=== PATIENT | female | born 1990 | race Caucasian/White ===

== ENCOUNTER 2018-04-19 10:43 | Emergency (ER) | payer OTHER, SELFPAY ==
[2018-04-19 13:04] LABS: Urine Bacteria >50 /HPF (<20); Urine Culture Reflex Order NOT NEEDED; Urine RBC >50 /HPF (NONE SEEN)
[2018-04-19 13:04] LABS: Urine Blood 3+ (NEG); Urine Glucose NEGATIVE (NEG); Urine Protein 3+ (NEG); Urine pH 6.5 (5.0-7.0)
--- NOTE | 2018-04-19 13:52 | EDPHYS ---
Physician Documentation [facility] Name: Zelda Rose Age: 27 yrs Sex: Female : 1990 Arrival Date: 04/19/2018 Time: 10:48 Bed 28 Private MD: ED Physician Tyrell Merritt HPI: 04/19 13:25 This 27 yrs old Female presents to ER via Ambulatory with complaints of rn Urinary Problem, Cough. 13:25 The patient or guardian reports cough. rn 13:29 Onset: The symptoms/episode began/occurred 2 week(s) ago. The patient has not rn experienced similar symptoms in the past. The patient has not recently seen a physician. Reports kids had flu 2 weeks ago, has been coughing brown sputum, no lung problems, no sob, no chest pain, here today because thinks has UTI, has lower abd and back aching with blood in urine and dysuria. . 13:30 Severity of symptoms: At their worst the symptoms were mild, in the emergency rn department the symptoms are unchanged. Modifying factors: The symptoms are alleviated by nothing, the symptoms are aggravated by nothing. 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 - Social history:: Smoking status: Patient/guardian denies using tobacco. - Ebola Screening: : No symptoms or risks identified at this time. - Family history:: not pertinent. - Hospitalizations: : No recent hospitalization is reported. ROS: 13:30 Constitutional: Negative for fever, chills, and weight loss, Eyes: Negative for injury, rn pain, redness, and discharge, Neck: Negative for injury, pain, and swelling, Cardiovascular: Negative for chest pain, palpitations, and edema, Respiratory: + cough Abdomen/GI: Negative for nausea, vomiting, diarrhea MS/Extremity: Negative for injury and deformity, Skin: Negative for injury, rash, and discoloration, Neuro: Negative for headache, weakness, numbness, tingling, and seizure. Exam: 13:30 Constitutional: This is a well developed, well nourished patient who is awake, alert, rn and in no acute distress. Walked straight up and without difficulty to room. Head/Face: Normocephalic, atraumatic. Cardiovascular: Regular rate and rhythm with a normal S1 and S2. No gallops, murmurs, or rubs. No JVD. No pulse deficits. Respiratory: Lungs have equal breath sounds bilaterally, clear to auscultation. No increased work of breathing, no retractions or nasal flaring. Abdomen/GI: soft, non-tender Skin: Warm, dry with normal turgor. Normal color with no rashes, no lesions, and no evidence of cellulitis. MS/ Extremity: Pulses equal, no cyanosis. Neurovascular intact. Full, normal range of motion. Equal circumference. Neuro: Awake and alert, GCS 15, oriented to person, place, time, and situation. Cranial nerves II-XII grossly intact. Motor strength 5/5 in all extremities. Sensory grossly intact. Normal gait. Vital Signs: 11:32 BP 121 / 78; Pulse 82; Resp 16 S; Temp 97.0(TE); Pulse Ox 98% on R/A; Weight 112.49 kg aa5 (R); Height 5 ft. 3 in. (160.02 cm) (R); Pain 5/10; 13:23 BP 139 / 94; Pulse 76; Resp 15; Temp 98.4; Pulse Ox 99% on R/A; Pain 5/10; ch 14:13 BP 129 / 71; Pulse 70; Resp 16; Temp 98.8; Pulse Ox 99% on R/A; Pain 5/10; ch 11:32 Body Mass Index 43.93 (112.49 kg, 160.02 cm) aa5 MDM: 13:17 Patient medically screened. rn 13:51 Differential Diagnosis: Bronchitis Upper Respiratory Infection Viral Syndrome Other rn UTI. Data reviewed: vital signs, nurses notes, lab test result(s), and as a result, I will discharge patient. Counseling: I had a detailed discussion with the patient and/or guardian regarding: the historical points, exam findings, and any diagnostic results supporting the discharge/admit diagnosis, lab results, the need for outpatient follow up, to return to the emergency department if symptoms worsen or persist or if there are any questions or concerns that arise at home. Special discussion: I discussed with the patient/guardian in detail that at this point there is no indication for admission to the hospital. It is understood, however, that if the symptoms persist or worsen the patient needs to return immediately for re-evaluation. 04/19 11:17 Order name: Urine Culture [facility] 04/19 11:17 Order name: Urine Microscopic Only; Complete Time: 13:17 snw 04/19 11:17 Order name: Urine Test (obtain specimen); Complete Time: 14:13 snw 04/19 11:17 Order name: Urine Dipstick-Ancillary (obtain specimen); Complete Time: 14:13 snw 04/19 12:44 Order name: Urine Dipstick--Ancillary (enter results); Complete Time: 13:17 eb 04/19 12:44 Order name: Urine --Ancillary (enter results); Complete Time: 13:17 eb Administered Medications: No medications were administered Disposition: 04/19/18 13:52 Discharged to Home. Impression: Cough, Urinary tract infection, site not specified. - Condition is Stable. - Discharge Instructions: Urinary Tract Infection, Adult, Cough, Adult. - Prescriptions for Macrobid 100 mg Oral Capsule - take 1 capsule by ORAL route every 12 hours for 10 days; 20 capsule. - Medication Reconciliation Form, Thank You Letter, Antibiotic Education, Prescription Opioid Use form. - Follow up: Private Physician; When: As needed; Reason: Recheck today's complaints, Re-evaluation by your physician. - Problem is new. - Symptoms have improved. Signatures: Dispatcher [employer] EDMS Cynthia Estrada RN RN ch Therrien, Shelly, IT SOLUTIONS ARCHITECT-C IT SOLUTIONS ARCHITECT-Csnw Tyrell Merritt MD MD rn Calderon, Audri, RN RN aa5 Corrections: (The following items were deleted from the chart) 14:15 13:52 04/19/2018 13:52 Discharged to Home. Impression: Cough; Urinary tract infection, site not specified. Condition is Stable. Forms are Medication Reconciliation Form, Thank You Letter, Antibiotic Education, Prescription Opioid Use. Follow up: Private Physician; When: As needed; Reason: Recheck today's complaints, Re-evaluation by your physician. Problem is new. Symptoms have improved. rn
--- NOTE | 2018-04-19 13:52 | ER ---
Nurse's Notes [facility] Name: Zelda Rose Age: 27 yrs Sex: Female : 1990 Arrival Date: 04/19/2018 Time: 10:48 Bed 28 Private MD: Diagnosis: Cough;Urinary tract infection, site not specified Presentation: 04/19 11:25 Presenting complaint: Patient states: "My kids were diagnosed with the flu a few weeks aa5 ago so I am pretty sure I had it too but I've been having chest pains and coughing up brown stuff for about 2 weeks". Pt also reports headache, urinary urgency, and blood in urine. 11:25 Method Of Arrival: Ambulatory aa5 11:25 Transition of care: patient was not received from another setting of care. Onset of aa5 symptoms was April 2018. Risk Assessment: Do you want to hurt yourself or someone else? Patient reports no desire to harm self or others. Initial Sepsis Screen: Does the patient meet any 2 criteria? No. Patient's initial sepsis screen is negative. Does the patient have a suspected source of infection? No. Patient's initial sepsis screen is negative. Care prior to arrival: None. 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 - Social history:: Smoking status: Patient/guardian denies using tobacco. - Ebola Screening: : No symptoms or risks identified at this time. - Family history:: not pertinent. - Hospitalizations: : No recent hospitalization is reported. Screenin:23 Abuse screen: Denies threats or abuse. Denies injuries from another. Nutritional ch screening: No deficits noted. Tuberculosis screening: No symptoms or risk factors identified. Fall Risk None identified. Assessment: 13:23 General: Appears in no apparent distress. comfortable, Behavior is calm, cooperative, ch appropriate for age. Pain: Denies pain. Complains of pain in low back area and suprapubic area Pain currently is 5 out of 10 on a pain scale. Pain began gradually. Neuro: No deficits noted. Respiratory: Airway is patent Respiratory effort is even, unlabored, Breath sounds are clear bilaterally. GI: No signs and/or symptoms were reported involving the gastrointestinal system. GI: Abdomen is round non-distended, Bowel sounds present X 4 quads. Abd is soft and non tender X 4 quads. Reports nausea, vomiting. : No signs and/or symptoms were reported regarding the genitourinary system. Derm: Skin is pink, warm \\T\\ dry. Musculoskeletal: No signs and/or symptoms reported regarding the musculoskeletal system. 14:13 Reassessment: Patient appears in no apparent distress at this time. No changes from previously documented assessment. Patient and/or family updated on plan of care and expected duration. Pain level reassessed. Patient is alert, oriented x 3, equal unlabored respirations, skin warm/dry/pink. Vital Signs: 11:32 BP 121 / 78; Pulse 82; Resp 16 S; Temp 97.0(TE); Pulse Ox 98% on R/A; Weight 112.49 kg aa5 (R); Height 5 ft. 3 in. (160.02 cm) (R); Pain 5/10; 13:23 BP 139 / 94; Pulse 76; Resp 15; Temp 98.4; Pulse Ox 99% on R/A; Pain 5/10; ch 14:13 BP 129 / 71; Pulse 70; Resp 16; Temp 98.8; Pulse Ox 99% on R/A; Pain 5/10; ch 11:32 Body Mass Index 43.93 (112.49 kg, 160.02 cm) aa5 ED Course: 10:48 Patient arrived in ED. sb2 11:25 Arm band placed on. aa5 11:32 Triage completed. aa5 12:24 EKG done, by test and turn up technician. reviewed by Tyrell Merritt MD. sm3 13:17 Tyrell Merritt MD is Attending Physician. rn 13:23 Cynthia Estrada, JOSE RAFAEL is Primary Nurse. ch 13:23 No apparent distress. Resting quietly. ch 13:23 Patient has correct armband on for positive identification. Bed in low position. Call ch light in reach. Side rails up X 1. Pulse ox on. NIBP on. 13:23 No provider procedures requiring assistance completed. Patient did not have IV access ch during this emergency room visit. Administered Medications: No medications were administered Outcome: 13:52 Discharge ordered by . rn 14:13 Discharged to home ambulatory. 14:13 Condition: stable 14:13 Discharge instructions given to patient, Instructed on discharge instructions, follow up and referral plans. no drinking with medication, medication usage, Demonstrated understanding of instructions, follow-up care, medications, Prescriptions given X 1. 14:15 Patient left the ED. Addendum: 04/23/2018 09:10 Addendum: Culture Results: Positive urine culture. No further action required. Bacteria i w sensitive to prescribed antibiotic. Signatures: Cynthia Estrada RN JOSE RAFAEL Brenda Russell RN RN Tyrell Merritt MD MD rn Calderon, JOSE RAFAEL Turpin RN aa5 Wen Maldonado 2 Dorene Olguin 3 Corrections: (The following items were deleted from the chart) 04/19 11:30 11:30 Arm band placed on aa5 aa5
--- NOTE | 2018-04-19 16:03 | EKG ---
Test Date: 2018-04-19 Test Time: 11:36:32 Employment Service Specialist: ARNOLDO MEASUREMENT RESULTS: Intervals: Rate: 66 PA: 170 QRSD: 88 QT: 376 QTc: 394 [place]: P: 54 PA: 170 QRS: 72 T: 43 INTERPRETIVE STATEMENTS: Normal sinus rhythm with sinus arrhythmia Normal ECG No previous ECG available for comparison Electronically Signed On 04-19-18 16:02:51 SPECIAL POLICE OFFICER by Andrew Gibsno
== END 2018-04-19 14:15 | disposition home or self-care (01) ==
LOC: ER 10:43
DX: N39.0 Urinary tract infection, site not specified (principal); R05 Cough
CPT/HCPCS: 81003; 81015; 81025; 87077; 87086; 87088; 87186; 93005; 99283

== ENCOUNTER 2024-05-10 14:16 | Emergency (ER) | payer OTHER, SELFPAY ==
[2024-05-10] MEDS ORDERED: NA CHLORIDE 0.9% 1,000 ML ONE (15:03)
[2024-05-10 15:27] LABS: Absolute Lymphocytes (CBC) 0.9 K/uL (0.7-4.9); Absolute Monocytes 0.5 K/uL (0.1-1.3); Absolute Neutrophil 7.1 K/uL (1.8-8.0); Basophils % 0.5 % (0-1.3); Eosinophils % 0.5 % (0-4.4); Hematocrit 33.2 % (36.0-45.0); Hemoglobin 11.1 g/dL (12.0-15.0); Lymphocytes % 10.1 % (15.3-44.8); MCH 25.4 pg (27.0-35.0); MCHC 33.3 g/dL (32.0-36.0); MCV 76.2 fL (80-100); MPV 7.8 fL (7.6-11.3); Monocytes % 5.7 % (3.3-12.3); Neutrophils % 83.2 % (41.7-73.7); Platelets 323 thou/uL (152-406); RBC Red Blood Cell Count 4.35 M/uL (3.86-4.86)
[2024-05-10 15:40] LABS: SARS-CoV-2 Antigen CONTROL BLUE LINE VIS/BG OK; SARS-CoV-2 Antigen Rapid Res Negative (Negative)
[2024-05-10 15:43] LABS: ALT/SGPT 15 U/L (13-56); AST/SGOT 13 U/L (15-37); Albumin 3.5 g/dL (3.4-5.0); Albumin/Globulin Ratio 0.9 (1.1-1.8); Alkaline Phosphatase 84 U/L (45-117); Anion Gap 7.7 mEq/L (5.0-15.0); BUN Blood Urea Nitrogen 12 mg/dL (7-18); Bicarbonate 27 mEq/L (21-32); Bilirubin Total 0.3 mg/dL (0.2-1.0); Globulin 3.9 g/dL (2.3-3.5); Glomerular Filtration Rate 119 ml/min (=/>90); Glucose Level 103 mg/dL (74-106); Potassium 3.7 mEq/L (3.5-5.1); Protein, Total 7.4 g/dL (6.4-8.2); Sodium Level 136 mEq/L (136-145)
--- NOTE | 2024-05-10 15:56 | RAD REPORT ---
EXAM: Chest Single View HISTORY: CHEST PAIN COMPARISON: 08/02/2022 FINDINGS: LUNGS/PLEURA: The lungs are clear. No pleural effusions or pneumothorax. No pulmonary edema. MEDIASTINUM: The mediastinal silhouette is within normal limits. CARDIAC: Stable size and configuration. UPPER ABDOMEN: No significant abnormality. BONES: No acute abnormality. LINES/TUBES/OTHER: N/A IMPRESSION: No evidence of acute cardiopulmonary disease.
[2024-05-10 16:02] LABS: Bilirubin Direct < 0.2 mg/dL (0-0.2); Bilirubin Indirect, Calculated 0.1 mg/dL (0.2-0.8); Troponin High Sensitivity < 3.0 pg/mL (<58.9)
[2024-05-10] MEDS ORDERED: ACETAMINOPHEN 500 MG TAB ONE (16:15)
[2024-05-10 18:11] LABS: Specific Gravity < 1.005 (1.005-1.030); Sqamous Epithelial <5 /HPF (None Seen); Urine Bacteria <20 /HPF (<20); Urine Bilirubin NEGATIVE (Negative); Urine Blood Trace (Negative); Urine Clarity Turbid (Clear); Urine Color Colorless (Yellow); Urine Culture Reflex Order NOT NEEDED; Urine Glucose NEGATIVE (Negative); Urine Ketones NEGATIVE (Negative); Urine Microscopic Reflex YN ORDER UMIC; Urine Mucus Slight /HPF (None Seen); Urine Nitrite NEGATIVE (Negative); Urine Protein NEGATIVE (Negative); Urine RBC <5 /HPF (None Seen); Urine Urobilinogen Normal (Normal); Urine WBC <5 /HPF (<5)
--- NOTE | 2024-05-10 18:18 | ER ---
Nurse's Notes [facility] Name: Zedla Rose Age: 34 yrs Sex: Female : 1990 Arrival Date: 05/10/2024 Time: 14:16 Bed 10 Private MD: Diagnosis: Viral syndrome Presentation: 05/10 14:27 Chief complaint: Patient states: she has been having fevers, shortness of breath, cough ap3 and body aches since yesterday. patient reports her pain to be a 10/10 on the pain scale. Coronavirus screen: Client presents with at least one sign or symptom that may indicate coronavirus-19. Ebola Screen: No symptoms or risks identified at this time. Initial Sepsis Screen: Does the patient meet any 2 criteria? HR > 90 bpm. No. Patient's initial sepsis screen is negative. Does the patient have a suspected source of infection? No. Patient's initial sepsis screen is negative. Risk Assessment: Do you want to hurt yourself or someone else? Patient reports no desire to harm self or others. Onset of symptoms was May 09, 2024. Transition of care: patient was not received from another setting of care. 14:27 Method Of Arrival: Ambulatory ap3 14:27 Acuity: SERJIO 3 ap3 Triage Assessment: 14:30 General: Appears in no apparent distress. Behavior is calm, cooperative, appropriate ap3 for age, Reports fever for feeling ill for fatigue for. Pain: Complains of pain in back and chest Pain began 1 day ago. Neuro: Level of Consciousness is awake, alert, obeys commands, Oriented to person, place, time, situation, Appropriate for age Speech is normal. Cardiovascular: Patient's skin is warm and dry. Respiratory: Reports shortness of breath cough that is Airway is patent Respiratory effort is even, unlabored, Respiratory pattern is regular, symmetrical. 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 Flu vaccine is not up to date. - Infectious Disease History:: Denies. - Social history:: Smoking status: Patient denies any tobacco usage or history of. Patient uses street drugs, marijuana. - Family history:: not pertinent. Screenin:31 [facility] ED Fall Risk Assessment (Adult) History of falling in the last 3 months, ap3 including since admission No falls in past 3 months (0 pts) Confusion or Disorientation No (0 pts) Intoxicated or Sedated No (0 pts) Impaired Gait No (0 pts) Mobility Assist Device Used No (0 pt) Altered Elimination No (0 pt) Score/Fall Risk Level 0 - 2 = Low Risk Oriented to surroundings, Maintained a safe environment, Educated pt \T\ family on fall prevention, incl call for assistance when getting out of bed, Assessed \T\ reinforced patient's understanding of fall precautions, Hourly rounding (assess needs \T\ fall precautionary measures) done, Used ambulatory aids as needed (educated on \T\ assisted with), Used gait belt as appropriate. Abuse screen: Denies threats or abuse. Nutritional screening: No deficits noted. Tuberculosis screening: No symptoms or risk factors identified. Assessment: 14:37 General: Appears uncomfortable, ill, well developed, well nourished, Behavior is calm, me1 cooperative, appropriate for age. General: Behavior is. General: Reports she has been having fevers, shortness of breath, cough and body aches since yesterday. patient reports her pain to be a 10/10 on the pain scale. Pain: Complains of pain in chest Pain radiates to back Pain currently is 10 out of 10 on a pain scale. Quality of pain is described as aching, Pain began gradually, 1 day ago. Is continuous. Neuro: Level of Consciousness is awake, alert, obeys commands, Oriented to person, place, time, situation, Appropriate for age. Cardiovascular: Patient's skin is warm and dry. Respiratory: Reports shortness of breath cough that is persistent since yesterday pain with cough since yesterday Airway is patent Respiratory effort is even, unlabored, Respiratory pattern is regular, symmetrical. GI: No signs and/or symptoms were reported involving the gastrointestinal system. : No signs and/or symptoms were reported regarding the genitourinary system. EENT: Reports nasal congestion since yesterday. Derm: Skin is intact, is healthy with good turgor, Skin is pink, warm \T\ dry. Musculoskeletal: No signs and/or symptoms reported regarding the musculoskeletal system. Vital Signs: 14:27 BP 134 / 94; Pulse 103; Resp 18; Temp 99.7(O); Pulse Ox 98% on R/A; Weight 127.01 kg; ap3 Height 5 ft. 3 in. ; Pain 10/10; 15:23 BP 132 / 68; Pulse 88; Resp 17; Pulse Ox 99% on R/A; me1 16:19 Temp 101(O); me1 16:30 BP 137 / 83; Pulse 90; Resp 17; Pulse Ox 100% ; me1 16:55 Temp 98.8(O); me1 17:30 BP 137 / 83; Pulse 96; Resp 18; Pulse Ox 98% ; me1 18:00 BP 139 / 71; Pulse 94; Resp 17; Pulse Ox 98% ; me1 18:41 BP 112 / 56; Pulse 99; Resp 18; Temp 98.7; Pulse Ox 99% ; me1 14:27 Body Mass Index 49.60 (127.01 kg, 160.02 cm) ap3 14:27 Pain Scale: Adult ap3 ED Course: 14:17 Patient arrived in ED. im 14:18 Chalino Campbell MD is Attending Physician. rt 14:29 Triage completed. ap3 14:31 Arm band placed on left wrist. ap3 14:36 Bety Barajas, JOSE RAFAEL is Primary Nurse. me1 14:37 Patient has correct armband on for positive identification. Bed in low position. Call me1 light in reach. Side rails up X2. Provided Education on: POC. Verbalized understanding.. Client placed on continuous cardiac and pulse oximetry monitoring. NIBP monitoring applied. Pulse ox on. NIBP on. 14:37 No provider procedures requiring assistance completed. me1 15:06 Initial lab(s) drawn, by me, sent to lab. COVID swab sent to lab. Flu and/or RSV swab me1 sent to lab. Inserted saline lock: 22 gauge in left antecubital area, using aseptic technique. 15:06 Basic Metabolic Panel Sent. me1 15:06 CBC with Diff Sent. me1 15:06 D-Dimer Sent. me1 15:06 LFT's Sent. me1 15:06 Troponin HS Sent. me1 15:21 XRAY Chest (1 view) In Process Unspecified. EDMS 15:23 EKG done, by ED staff, reviewed by Chalino Campbell MD. me1 16:55 Urinalysis w/ reflexes Sent. me1 18:41 IV discontinued, intact, bleeding controlled, No redness/swelling at site. Pressure me1 dressing applied. Administered Medications: 15:10 Drug: NS 0.9% IV 1000 ml IV at 1 bolus Per protocol; to be given as a bolus over 60 me1 minutes Route: IV; Rate: 1 bolus; Site: left antecubital; 16:23 Follow up: Response: No adverse reaction; IV Status: Completed infusion; IV Intake: me1 1000ml 16:23 Drug: Acetaminophen PO 1000 mg PO once Route: PO; me1 16:55 Follow up: Response: No adverse reaction; Temperature is decreased me1 Medication: 14:37 VIS not applicable for this client. me1 Intake: 16:23 IV: 1000ml; Total: 1000ml. me1 Outcome: 18:18 Discharge ordered by MD. rt 18:41 Discharged to home ambulatory, me1 18:41 Condition: stable 18:41 Discharge instructions given to patient, Instructed on discharge instructions, follow up and referral plans. Demonstrated understanding of instructions, follow-up care, 18:41 Patient left the ED. me1 Signatures: Dispatcher [employer] EDOR Yokasta Brooks RN RN ap3 Chalino Campbell MD MD rt María Riggins Michelle RN RN me1 Corrections: (The following items were deleted from the chart) 14:37 14:27 Chief complaint: Patient states: she has been having fevers, shortness of breath, me1 cough and body aches since yesterday. patient reports her pain to be a 10/10 on the pain scale ap3
--- NOTE | 2024-05-10 18:19 | EDPHYS ---
Physician Documentation [facility] Name: Zelda Rose Age: 34 yrs Sex: Female : 1990 Arrival Date: 05/10/2024 Time: 14:16 Bed 10 Private MD: ED Physician Chalino Campbell HPI: 05/10 15:53 This 34 yrs old Female presents to ER via Ambulatory with complaints of Flu Symptoms, rt Back Pain, Chest Pain, Shortness Of Breath. 15:53 Patient presents to the ED with 1 day of cough, congestion, chest pain, shortness of rt breath fever, generalized bodyaches. States that the symptoms have worsened today. Denies other acute complaints at this time, symptoms are moderate in severity, no other aggravating or alleviating factors.. 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 Flu vaccine is not up to date. - Infectious Disease History:: Denies. - Social history:: Smoking status: Patient denies any tobacco usage or history of. Patient uses street drugs, marijuana. - Family history:: not pertinent. ROS: 15:53 Abdomen/GI: Negative for abdominal pain, nausea, vomiting, diarrhea, and constipation, rt MS/Extremity: Negative for injury and deformity, Skin: Negative for injury, rash, and discoloration, 15:53 Constitutional: Positive for body aches, fever, 15:53 Cardiovascular: Positive for chest pain, Negative for edema, 15:53 Respiratory: Positive for cough, shortness of breath, Exam: 15:53 Constitutional: This is a well developed, well nourished patient who is awake, alert, rt and in no acute distress. Head/Face: Normocephalic, atraumatic. Chest/axilla: Normal chest wall appearance and motion. Nontender with no deformity. No lesions are appreciated. Cardiovascular: Regular rate and rhythm with a normal S1 and S2. No gallops, murmurs, or rubs. Normal PMI, no JVD. No pulse deficits. Respiratory: Lungs have equal breath sounds bilaterally, clear to auscultation and percussion. No rales, rhonchi or wheezes noted. No increased work of breathing, no retractions or nasal flaring. Abdomen/GI: Soft, non-tender, with normal bowel sounds. No distension or tympany. No guarding or rebound. No evidence of tenderness throughout. Skin: Warm, dry with normal turgor. Normal color with no rashes, no lesions, and no evidence of cellulitis. MS/ Extremity: Pulses equal, no cyanosis. Neurovascular intact. Full, normal range of motion. Neuro: Awake and alert, GCS 15, oriented to person, place, time, and situation. Cranial nerves II-XII grossly intact. Motor strength 5/5 in all extremities. Sensory grossly intact. Cerebellar exam normal. Normal gait. 15:53 ECG was reviewed by the Attending Physician. Vital Signs: 14:27 BP 134 / 94; Pulse 103; Resp 18; Temp 99.7(O); Pulse Ox 98% on R/A; Weight 127.01 kg; ap3 Height 5 ft. 3 in. ; Pain 10/10; 15:23 BP 132 / 68; Pulse 88; Resp 17; Pulse Ox 99% on R/A; me1 16:19 Temp 101(O); me1 16:30 BP 137 / 83; Pulse 90; Resp 17; Pulse Ox 100% ; me1 16:55 Temp 98.8(O); me1 17:30 BP 137 / 83; Pulse 96; Resp 18; Pulse Ox 98% ; me1 18:00 BP 139 / 71; Pulse 94; Resp 17; Pulse Ox 98% ; me1 18:41 BP 112 / 56; Pulse 99; Resp 18; Temp 98.7; Pulse Ox 99% ; me1 14:27 Body Mass Index 49.60 (127.01 kg, 160.02 cm) ap3 14:27 Pain Scale: Adult ap3 MDM: 14:39 Medical Screening Exam initiated rt 19:50 Differential diagnosis: Viral syndrome, pneumonia, pneumothorax, pulmonary embolus. rt Data reviewed: vital signs, nurses notes, lab test result(s), EKG, radiologic studies. I considered the following discharge prescriptions or medication management in the emergency department Medications were administered in the Emergency Department. See MAR. Independent interpretation of the following test(s) in the Emergency Department X-Ray: My interpretation is No infiltrate seen on interpretation of x-ray images. Counseling: I had a detailed discussion with the patient and/or guardian regarding the historical points, exam findings, and any diagnostic results supporting the discharge/admit diagnosis, lab results, radiology results, the need for outpatient follow up, to return to the emergency department if symptoms worsen or persist or if there are any questions or concerns that arise at home. Response to treatment: the patient's symptoms have markedly improved after treatment. Special discussion: I discussed with the patient/guardian that the patient's current presentation does not indicate dosing of antibiotics. They should follow-up with their primary care provider and return if the symptoms persist or progress. 05/10 14:47 Order name: Basic Metabolic Panel; Complete Time: 16:12 rt 05/10 14:47 Order name: CBC with Diff; Complete Time: 15:52 rt 05/10 14:47 Order name: D-Dimer; Complete Time: 16:17 rt 05/10 14:47 Order name: LFT's; Complete Time: 16:12 rt 05/10 14:47 Order name: Troponin HS; Complete Time: 16:12 rt 05/10 14:47 Order name: Influenza Screen (a \T\ B); Complete Time: 15:52 rt 05/10 14:47 Order name: SARS RAPID; Complete Time: 15:52 rt 05/10 16:47 Order name: Urinalysis w/ reflexes; Complete Time: 18:13 me1 05/10 14:47 Order name: XRAY Chest (1 view); Complete Time: 16:12 rt 05/10 14:47 Order name: EKG; Complete Time: 14:47 rt 05/10 14:47 Order name: Cardiac monitoring; Complete Time: 15:24 rt 05/10 14:47 Order name: EKG - Nurse/Tech; Complete Time: 15:24 rt 05/10 14:47 Order name: IV Saline Lock; Complete Time: 15:06 05/10 14:47 Order name: Labs collected and sent; Complete Time: 15:06 rt 05/10 14:47 Order name: O2 Per Protocol; Complete Time: 15:06 rt 05/10 14:47 Order name: O2 Sat Monitoring; Complete Time: 15:06 rt EC:53 Rate is 81 beats/min. Rhythm is regular, Normal Sinus Rhythm with No ectopy. QRS [place] rt is Normal. NC interval is normal. QRS interval is normal. QT interval is normal. No Q waves. T waves are Normal. No ST changes noted. Interpreted by me. Administered Medications: 15:10 Drug: NS 0.9% IV 1000 ml IV at 1 bolus Per protocol; to be given as a bolus over 60 me1 minutes Route: IV; Rate: 1 bolus; Site: left antecubital; 16:23 Follow up: Response: No adverse reaction; IV Status: Completed infusion; IV Intake: me1 1000ml 16:23 Drug: Acetaminophen PO 1000 mg PO once Route: PO; me1 16:55 Follow up: Response: No adverse reaction; Temperature is decreased me1 Disposition Summary: 05/10/24 18:18 Discharge Ordered Notes: Location: Home rt Problem: new rt Symptoms: have improved rt Condition: Stable rt Diagnosis - Viral syndrome rt Followup: rt - With: Private Physician - When: 2 - 3 days - Reason: Discharge Instructions: - Discharge Summary Sheet rt - Viral Respiratory Infection rt - Viral Illness, Adult rt Forms: - Work release form rt - Medication Reconciliation Form rt - Antibiotic Education rt - Prescription Opioid Use rt - Patient Portal Instructions rt - Leadership Thank You Letter rt Signatures: Dispatcher [employer] EDYokasta Santacruz RN RN ap3 Chalino Campbell MD MD rt Bety Barajas RN RN me1 Corrections: (The following items were deleted from the chart) 14:47 14:47 BASIC METABOLIC PANEL+C.LAB.BRZ ordered. EDMS EDMS 14:47 14:47 CBC+H.LAB.BRZ ordered. EDMS EDMS 14:47 14:47 D-DIMER+COAG.LAB.BRZ ordered. EDMS EDMS 14:47 14:47 HEPATIC FUNCTION+C.LAB.BRZ ordered. EDMS EDMS 14:47 14:47 Troponin High Sensitivity+C.LAB.BRZ ordered. EDMS EDMS 14:47 14:47 Influenza Screen (A \T\ B)+BA.LAB.BRZ ordered. EDMS EDMS 14:47 14:47 SARS-COV-2 Antigen Rapid+I.LAB.BRZ ordered. EDMS EDMS 14:48 14:47 Chest Single View+RAD.RAD.BRZ ordered. EDMS EDMS
[2024-05-10 23:46] VITALS: BP 112/56; TEMP 98.7; O2SAT 99
--- OUTSIDE RECORDS SUMMARY | 2024-05-11 02:27 | XMS REPORT | Continuity of Care Document ---
Author Name Unknown Address [address] [place] [address] [address] [place] [address] [facility] Address [address] [facility] 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 Role Phone MARISABEL REYNOLDS Primary Care Physician MARISABEL Marie Attending Clinician Unavailab MARISABEL Beaulieu Attending Clinician Unavailab Cherie Hampton DNP Attending Clinician [phone] CHERIE STOLL Attending Clinician Unavailable Geno SAND CONDITIONERMarisabel Attending Clinician [phone] Pob, Adc Lab Main Attending Clinician UnavailHAYES Merchant Attending Clinician Unavailable YEN WAITE Attending Clinician Unavailable AYUSH Attending Clinician Unavailable Tj Dior MD Attending Clinician [phone] TJ DIOR Attending Clinician Unavail able TJ DIOR Attending Clinician Unavail able Doctor Unassigned, [place] Attending Clinician U CARMEL Tang Attending Clinician Unavailable Criss Thomas Attending Clinician [phone] CRISS CARBONE Attending Clinician Unavailable AYUSH Admitting Clinician Unavailable Payers Payer Name Policy Type Policy Number Effective Date Expirati on Date Source UMR [id number] 2023 00:00:00 EUNICE MARIANAO [id number] 2020 00:00:00 [facility] UMR [id number] 2022 00:00:00 Problems Condition Name Condition Details Condition Category Status Onset Date Resolution Date Last Treatment Date Treating Clinician Comments Source No known active problems No known active problems Disease [facility] Allergies, Adverse Reactions, Alerts Allergy Name Allergy Type Status Severity Reaction(s) Onset Date Inactive Date Treating Clinician Comments Source NO KNOWN ALLERGIE S Drug Class Active [facility] Social History Social Habit Start Date Stop Date Quantity Comments Source [facility] to SARS-CoV-2 (event) Not sure [facility] Alcoholic beverage intake 2024-02-12 00:00:00 2024-02-12 00:00:00 Current drinker of alcohol (finding) [facility] Alcohol Comment 2024-02-12 00:00:00 2024-02-12 00:00:00 Rarely [facility] Alcohol intake 2021-07-08 00:00:00 2021-07-08 00:00:00 Current drinker of alcohol (finding) [facility] History of Social function 2020-07-06 00:00:00 2020-07-06 00:00:00 [facility] Tobacco use and exposure 2020-07-06 00:00:00 2020-07-06 00:00:00 Smokeless tobacco non-user [facility] Sex assigned at 1990 00:00:00 1990 00:00:00 [facility] Smoking Status Start Date Stop Date Source Never smoked tobacco [facility] Medications Ordered Medication Name Filled Medication Name Start Date Stop Date Current Medication? Ordering Clinician Indication Dosage Frequency Signature (SIG) Comments Components Source terbinafine HCL 250 mg tablet 2023-04 00:00: 00 04-16 05:59 :00 Yes [id number] 250mg Take 1 tablet by mouth in the morning for 60 days. [facility] phentermine 37.5 mg tablet 9-19 00:00: 00 Yes TAKE 1 TABLET BY MOUTH EVERY DAY BEFORE BREAKFAST [facility] No known medications 4-14 13:45: 59 No [facility] Vital Signs Vital Name Observation Time Observation Value Comments S ource Heart rate 2024-02-12 16:29:00 79 /min [facility] Oxygen saturation in Arterial blood by Pulse oximetry 2024-02-12 16:29:00 98 /min [facility] Systolic blood pressure 2024-02-12 16:28:00 130 mm[Hg] [facility] Diastolic blood pressure 2024-02-12 16:28:00 68 mm[Hg] [facility] Body temperature 2024-02-12 16:27:00 36.94 Felicitas [facility] Body height 2024-02-12 16:27:00 160 cm [facility] Body weight 2024-02-12 16:27:00 123.514 kg [facility] BMI 2024-02-12 16:27:00 48.24 kg/m2 [facility] Body weight 2021-07-08 14:09:00 124.286 kg [facility] BMI 2021-07-08 14:09:00 48.54 kg/m2 [facility] Oxygen saturation in Arterial blood by Pulse oximetry 2021-07-08 14:09:00 99 /min [facility] Systolic blood pressure 2021-07-08 14:09:00 128 mm[Hg] [facility] Diastolic blood pressure 2021-07-08 14:09:00 84 mm[Hg] [facility] Heart rate 2021-07-08 14:09:00 62 /min [facility] Body height 2021-07-08 14:09:00 160 cm [facility] Encounters Start Date/Time End Date/Time Encounter Type Admission Type Attending Clinicians Care Facility Care Department Encounter ID Source 2024-08-10 09:30:00 2024-08-10 09:30:00 Outpatient R MARISABEL REYNOLDS OGECHUKWU [facility] [id number] [facility] 2024-03-04 00:00:00 2024-03-04 08:42:54 Telephone Cherie Stoll [facility] 1.2.840.114 350.1.13.10 4.2.7.2.686 [id number] [facility] 2024-03-04 08:00:00 2024-03-04 08:30:00 Office Visit Cherie Stoll [facility] 1.2.840.114 350.1.13.10 4.2.7.2.686 [id number] [facility] 2024-03-04 08:00:00 2024-03-04 08:00:00 Outpatient R CHERIE STOLL [facility] [id number] [facility] 2024-02-19 00:00:00 2024-02-19 11:12:53 Telephone Marisabel Reynolds [facility] 1.2.840.114 350.1.13.10 4.2.7.2.686 [id number] [facility] 2024-02-18 00:00:00 2024-02-18 15:24:57 Telephone Marisabel Reynolds [facility] 1.2.840.114 350.1.13.10 4.2.7.2.686 [id number] [facility] 2024-02-15 00:00:00 2024-02-15 09:31:06 Telephone Marisabel Reynolds [facility] 1.2.840.114 350.1.13.10 4.2.7.2.686 [id number] [facility] 2024-02-12 12:47:10 2024-02-12 23:59:00 Hospital Encounter Marisabel Reynolds [facility] 1.2.840.114 350.1.13.10 4.2.7.2.686 [id number] [facility] 2024-02-12 00:00:00 2024-02-12 14:52:[address] [facility] 1.2.840.114 350.1.13.10 4.2.7.2.686 [id number] [facility] 2024-02-12 12:45:00 2024-02-12 13:00:00 Rn Security Visit Pob, Adc Lab Main Marisabel Reynolds [facility] 1.2.840.114 350.1.13.10 4.2.7.2.686 [id number] [facility] 2024-02-12 11:00:00 2024-02-12 12:21:22 Outpatient Jonel MARISABEL REYNOLDS [facility] [id number] [facility] 2024-02-12 11:00:00 2024-02-12 12:21:22 Office Visit Marisabel Reynolds [facility] 1.2.840.114 350.1.13.10 4.2.7.2.686 [id number] [facility] 2024-02-11 11:30:00 2024-02-11 11:30:00 Outpatient HAYES CATES [facility] [id number] [facility] 2024-02-02 09:00:00 2024-02-02 09:00:00 Outpatient HAYES CATES [facility] [id number] [facility] 2023-09-30 14:00:00 2023-09-30 14:00:00 Outpatient YEN WAITE [facility] [id number] [facility] 2022-10-03 00:00:00 2022-10-03 00:00:00 Outpatient SISSON_C [facility] [id number] [facility] 2021-07-08 09:20:00 2021-07-08 09:40:00 Office Visit Tj Dior [facility] YAMILETH [facility] 1.2.840.114 350.1.13.10 4.2.7.2.686 [id number] [facility] 2021-07-08 09:20:00 2021-07-08 09:20:00 Outpatient TJ KATHLEEN FLORESTJ DORADO [facility] [id number] [facility] 2021-07-08 09:20:00 2021-07-08 09:20:00 Outpatient TJ KATHLEEN HOWARD [facility] [id number] [facility] 2021-07-08 00:00:00 2021-07-08 00:00:00 Orders Only Doctor Unassigned, [place] [facility] 1.2.840.114 350.1.13.10 4.2.7.2.686 [id number] [facility] 2021-06-17 00:00:00 2021-06-17 00:00:00 [facility] 1.2.840.114 350.1.13.10 4.2.7.2.686 [id number] [facility] 2020-07-18 00:00:00 2020-07-18 00:00:00 Outpatient Jonel HOWARDMayda TJ FRANCO [facility] [id number] [facility] 2020-07-13 14:00:00 2020-07-13 14:00:00 Outpatient CARMEL HOFFMANN [facility] [id number] [facility] 2020-07-10 12:56:14 2020-07-10 14:03:59 [facility] 1.2.840.114 350.1.13.10 4.2.7.2.686 [id number] [facility] 2020-07-10 13:00:00 2020-07-10 13:00:00 Outpatient TJ KATHLEEN HOWARD [facility] [id number] [facility] 2020-07-06 12:33:54 2020-07-06 13:48:13 Office Visit Criss Carbone [facility] ..840.114 350.1.13.10 4.2.7.2.686 [id number] [facility] 2020-07-06 13:00:00 2020-07-06 13:00:00 Outpatient CRISS WEAVER [facility] [id number] [facility] 2020-07-06 00:00:00 2020-07-06 00:00:00 Letter (Out) Doctor Unassigned, [place] [id number] 350.1.13.10 4.2.7.2.686 [id number] [facility] 2020-07-06 00:00:00 2020-07-06 00:00:00 Letter (Out) Doctor Unassigned, [place] [facility] ..840.114 350.1.13.10 4.2.7.2.686 [id number] [facility]
--- NOTE | 2024-05-11 12:30 | EKG ---
Test Date: 2024-05-10 Test Time: 15:17:55 Tobacco Curer: MEASUREMENT RESULTS: Intervals: Rate: 81 LA: 168 QRSD: 90 QT: 358 QTc: 415 [place]: P: 30 LA: 168 QRS: 35 T: 18 INTERPRETIVE STATEMENTS: Normal sinus rhythm with sinus arrhythmia Normal ECG Compared to ECG 08/02/2022 21:23:42 No significant changes Electronically Signed On 05-11-24 12:28:57 LAUNDRY MANAGER by Pavel Nicholas
== END 2024-05-10 18:41 | disposition home or self-care (01) ==
LOC: ER 14:16
DX: B34.9 Viral infection, unspecified (principal); Z11.52 Encounter for screening for COVID-19
CPT/HCPCS: 93005; 85025; 81001; 80048; 36415; 85379; 80076; 84484; 87804 ×2; 71045; 96360; 99285; 87811; J7030